=== PATIENT | female | born 1930 | race Caucasian/White ===

== ENCOUNTER → 2018-12-11 | Outpatient (CLI) | payer MEDICARE, OTHER ==
--- NOTE | 2018-12-11 09:37 | RAD ---
EXAM: Right knee, 3 views. HISTORY: Pain. COMPARISON: None. FINDINGS: 3 views the right knee are obtained. There is mild vertebral marginal spurring. There is a small joint effusion. There is no fracture, dislocation or subluxation. IMPRESSION: Mild tricompartmental intrathoracic right knee with a small joint effusion. Electronically signed by: Ирина Moreno MD (12/11/2018 9:34 AM) [id number]
== END | disposition home or self-care (01) ==
LOC: PMG 08:49
PROVIDERS: ATTEND Physician Assistant Medical
DX: M25.461 Effusion, right knee (principal); M76.891 Other specified enthesopathies of right lower limb, excluding foot; M17.11 Unilateral primary osteoarthritis, right knee
CPT/HCPCS: 73562

== ENCOUNTER → 2019-01-04 | Outpatient (CLI) | payer MEDICARE, OTHER ==
--- NOTE | 2019-01-04 15:06 | RAD ---
Right lower extremity venous doppler ultrasound Indication: Right leg pain and edema. Technique: Color Doppler, grayscale, and spectral waveform analysis is used to evaluate the right femoral and popliteal veins. Findings: No evidence of deep venous thrombosis. Normal response to augmentation, normal compressibility and normal phasicity is demonstrated. Visualized calf veins are patent. Fluid collection in the popliteal fossa measuring 17 x 13 x 13 mm likely Brandon's cyst. Impression: Negative for deep venous thrombosis Electronically signed by: Timothy Castillo MD (01/04/2019 3:03 PM) [id number]
== END | disposition home or self-care (01) ==
LOC: US 14:06
PROVIDERS: ATTEND Physician Assistant Medical
DX: M79.604 Pain in right leg (principal); R29.898 Other symptoms and signs involving the musculoskeletal system
CPT/HCPCS: 93971

== ENCOUNTER 2020-02-04 09:19 | Inpatient (IN) | payer MEDICARE ==
[~2020-02-04] VITALS: Ht 160 cm; Wt 75.1 kg
[2020-02-04] MEDS ORDERED: 0.9 % SODIUM CHLORIDE 10 ML DISP.SYRIN. IV PRN (09:45)
[2020-02-04] MEDS: NORMAL SALINE IV SCH ×6 (10:24→15:15)
--- NOTE | 2020-02-04 10:33 | EKG ---
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
--- NOTE | 2020-02-04 10:43 | PHYS DOC ---
Adult General Chief Complaint Chief Complaint: FEVER HPI HPI Patient is a 89 year old female who presents with complaint of chills and fever. The patient states that her symptoms started today. After awakening's morning, she noted that she started to suddenly feel very shaky all over. She states that this subsided after several minutes. She came to the emergency department to be evaluated for the symptoms. She was noted to have a fever of 101 F upon entering the building. Her temperature here in the emergency department measured orally is 99.1 F currently. She does state that she took 2 regular strength ibuprofen prior to coming to the emergency department. She denies ch est pain, shortness of breath, abdominal pain, vomiting, or diarrhea. No known exposure to any individuals confirmed or suspected to have COVID-19. Does note slight fatigue. Does have history of arthritis in the right knee. She notes mild swelling to her knee and pain but has not noted any redness or swelling throughout her leg. Review of Systems Review of Systems Constitutional: Chills, fever [] Eyes: Denies change in visual acuity, redness, or eye pain [] HENT: Denies nasal congestion or sore throat [] Respiratory: Denies cough or shortness of breath [] Cardiovascular: Denies chest pain or edema [] GI: Denies abdominal pain, nausea, vomiting, bloody stools or diarrhea [] : Denies dysuria or hematuria [] Musculoskeletal: Denies back pain or joint pain [] Integument: Denies rash or skin lesions [] Neurologic: Denies headache, focal weakness or sensory changes [] All other systems were reviewed and found to be within normal limits, except as documented in this note. Current Medications Current Medications Current Medications Medications (Trade) Dose Ordered Sig/Joanie Start Time Stop Time Status Last Admin Dose Admin Sodium Chloride 1,560 ml @ 1,560 mls/hr Q1H 02/04/20 10:15 02/04/20 10:24 1,560 MLS/HR Sodium Chloride (Normal Saline Flush) 10 ml QSHIFT PRN 02/04/20 09:45 Allergies Allergies Allergies Coded Allergies Type Severity Reaction Last Updated Verified No Known Drug Allergies 02/04/20 No Physical Exam Physical Exam Constitutional: Alert, febrile, no acute distress. [] HENT: Normocephalic, atraumatic, bilateral external ears normal, oropharynx moist, no oral exudates, nose normal. [] Eyes: PERRLA, EOMI, conjunctiva normal, no discharge. [] Neck: Normal range of motion, no tenderness, supple, no stridor. [] Cardiovascular: Tachycardia, regular rhythm, no murmur [] Lungs & Thorax: Bilateral breath sounds clear to auscultation [] Abdomen: Bowel sounds normal, soft, no tenderness, no masses, no pulsatile masses. [] Skin: Warm, dry, no erythema, no rash. [] Back: No tenderness, no CVA tenderness. [] Extremities: Right knee with mild joint effusion, no erythema or warmth noted, no cyanosis, no clubbing, ROM intact. [] Neurologic: Alert and oriented X 3, normal motor function, normal sensory function, no focal deficits noted. [] Current Patient Data Vital Signs Vital Signs Date Time Temp Pulse Resp B/P (MAP) Pulse Ox O2 Delivery O2 Flow Rate FiO2 02/04/20 11:29 94 17 109/48 (68) 96 02/04/20 10:59 105 20 141/49 (79) 93 02/04/20 10:29 103 25 157/73 (101) 94 02/04/20 09:59 115 28 162/75 (104) 92 02/04/20 09:20 99.1 125 18 144/77 (99) 94 Room Air Lab Results Laboratory Tests Test 02/04/20 10:20 02/04/20 10:55 White Blood Count 18.4 x10^3/uL Red Blood Count 4.61 x10^6/uL Hemoglobin 14.1 g/dL Hematocrit 42.9 % Mean Corpuscular Volume 93 fL Mean Corpuscular Hemoglobin 31 pg Mean Corpuscular Hemoglobin Concent 33 g/dL Red Cell Distribution Width 14.4 % Platelet Count 186 x10^3/uL Neutrophils (%) (Auto) 94 % Lymphocytes (%) (Auto) 1 % Monocytes (%) (Auto) 4 % Eosinophils (%) (Auto) 0 % Basophils (%) (Auto) 0 % Neutrophils # (Auto) 17.4 x10^3uL Lymphocytes # (Auto) 0.3 x10^3/uL Monocytes # (Auto) 0.8 x10^3/uL Eosinophils # (Auto) 0.0 x10^3/uL Basophils # (Auto) 0.0 x10^3/uL Platelet Estimate Pending Sodium Level 139 mmol/L Potassium Level 3.9 mmol/L Chloride Level 104 mmol/L Carbon Dioxide Level 24 mmol/L Anion Gap 11 Blood Urea Nitrogen 19 mg/dL Creatinine 0.9 mg/dL Estimated GFR (Cockcroft-Gault) 59.1 BUN/Creatinine Ratio 21 Glucose Level 150 mg/dL Lactic Acid Level 2.7 mmol/L Calcium Level 10.2 mg/dL Total Bilirubin 0.4 mg/dL Aspartate Amino Transf (AST/SGOT) 18 U/L Alanine Aminotransferase (ALT/SGPT) 21 U/L Alkaline Phosphatase 83 U/L Total Protein 7.2 g/dL Albumin 3.4 g/dL Albumin/Globulin Ratio 0.9 Urine Collection Type Unknown Urine Color Yellow Urine Clarity Hazy Urine pH 6.0 Urine Specific [place] 1.025 Urine Protein Neg Urine Glucose (UA) 100 mg/dL Urine Ketones (Stick) Neg mg/dL Urine Blood Neg Urine Nitrite Neg Urine Bilirubin Neg Urine Urobilinogen Dipstick 0.2 mg/dL Urine Leukocyte Esterase Neg Urine RBC Occ /HPF Urine WBC Occ /HPF Urine Squamous Epithelial Cells Many /LPF Urine Bacteria Few /HPF Current Medications Medications (Trade) Dose Ordered Sig/Joanie Route PRN Reason Start Time Stop Time Status Last Admin Dose Admin Sodium Chloride (Normal Saline Flush) 10 ml QSHIFT PRN IV AFTER MEDS AND BLOOD DRAWS 02/04/20 09:45 Sodium Chloride 1,560 ml @ 1,560 mls/hr Q1H IV 02/04/20 10:15 02/04/20 10:24 Ceftriaxone Sodium 1 gm/ Sodium Chloride 50 ml @ 100 mls/hr 1X ONCE IV 02/04/20 12:00 02/04/20 12:29 UNV EKG EKG Interpreted by me: Heart rate 114, sinus tachycardia, normal intervals, no acute ST/T wave abnormalities present [] Radiology/Procedures Radiology/Procedures [address] [address] IMAGING REPORT Signed PATIENT: FLASH BARNEY ACCOUNT: [id number] : 1930 LOCATION: ER AGE: 89 SEX: F EXAM STATUS: REG ER ORD. PHYSICIAN: CHAR RAJPUT MD REASON: fever, tachycardia PROCEDURE: PORTABLE CHEST 1V PORTABLE CHEST 1V History: Reason: fever, tachycardia / Spl. Instructions: / History: Comparison: None. Findings: Linear right basilar opacity. No pleural effusion. No pneumothorax. Bilateral glenohumeral DJD with superior decentering of the humeral heads in relation to the glenoid, may indicate chronic rotator cuff tears. Impression: 1. Linear right basilar opacity, may represent atelectasis or scarring. Electronically signed by: Luis F Cintron DO (02/04/2020 10:48 AM) [id number] DICTATED AND SIGNED BY: LUIS F CINTRON DO DATE: 02/04/20 1048 CC: CHAR RAJPUT MD; JOSH BAE ~ [] Course & Med Decision Making Course & Med Decision Making Pertinent Labs and Imaging studies reviewed. (See chart for details) Patient noted to be tachycardic and was febrile as reported at the front door of the building, thus meeting SIRS criteria. The patient was started on IV fluids at 30 mL/kg bolus based off of ideal body weight. Lactic acid level was found to be 2.7 and white blood cell count was over 18,000. The source of the patient's infection is not clear after initial work-up. Given age and high risk for severe infection, the patient will be admitted to the hospital and started on empiric Rocephin therapy. I spoke with Dr. Vidales who agreed to accept patient to the hospital for further care. Dragon Disclaimer Dragon Disclaimer This electronic medical record was generated, in whole or in part, using a voice recognition dictation system. Departure Departure: Impression: Primary Impression: SIRS (systemic inflammatory response syndrome) Additional Impression: Elevated lactic acid level Disposition: ADMITTED INPATIENT Admitting Physician: Azael Vidales Condition: STABLE Referrals: JOSH BAE (PCP) Justification of Admission: Justification of Admission: Justification of Admission Dx: Yes Sepsis: Isolation Indicated Problem Qualifiers CHAR RAJPUT MD Feb 04, 2020 10:43
[2020-02-04 10:44] LABS: BASO % 0 % (0-3); EOS % 0 % (0-3); HEMATOCRIT 42.9 % (36.0-47.0); HEMOGLOBIN 14.1 g/dL (12.0-15.5); LYMPH # 0.3 x10^3/uL (1.0-4.8); LYMPH % 1 % (24-48); MEAN CORPUSCULAR HEMOGLOBIN 31 pg (25-35); MEAN CORPUSCULAR HGB CONC 33 g/dL (31-37); MEAN CORPUSCULAR VOLUME 93 fL (79-100); MONO # 0.8 x10^3/uL (0.0-1.1); MONO % 4 % (0-9); NEUT # 17.4 x10^3uL (1.8-7.7); NEUT % 94 % (31-73); PLATELET COUNT 186 x10^3/uL (140-400); RED BLOOD COUNT 4.61 x10^6/uL (3.50-5.40); RED CELL DISTRIBUTION WIDTH 14.4 % (11.5-14.5); WHITE BLOOD COUNT 18.4 x10^3/uL (4.0-11.0)
--- NOTE | 2020-02-04 10:51 | RAD ---
PORTABLE CHEST 1V History: Reason: fever, tachycardia / Spl. Instructions: / History: Comparison: None. Findings: Linear right basilar opacity. No pleural effusion. No pneumothorax. Bilateral glenohumeral DJD with superior decentering of the humeral heads in relation to the glenoid, may indicate chronic rotator cuff tears. Impression: 1. Linear right basilar opacity, may represent atelectasis or scarring. Electronically signed by: Luis F Cintron DO (02/04/2020 10:48 AM) [id number]
[2020-02-04 10:55] LABS: CALCIUM 10.2 mg/dL (8.5-10.1); CREATININE 0.9 mg/dL (0.6-1.0); GFR 59.1; POTASSIUM 3.9 mmol/L (3.5-5.1)
[2020-02-04 11:01] LABS: ALBUMIN 3.4 g/dL (3.4-5.0); ALBUMIN/GLOBULIN RATIO 0.9 (1.0-1.7); TOTAL BILIRUBIN 0.4 mg/dL (0.2-1.0); TOTAL PROTEIN 7.2 g/dL (6.4-8.2)
[2020-02-04 11:32] LABS: BACTERIA,URINE FEW /HPF (0-FEW); BILIRUBIN,URINE NEG (NEG); CLARITY,URINE HAZY; COLOR,URINE YELLOW; GLUCOSE,URINE 100 mg/dL (NEG); NITRITE,URINE NEG (NEG); RBC,URINE OCC /HPF (0-2); SQUAMOUS EPITHELIAL CELL,UR MANY /LPF; UROBILINOGEN,URINE 0.2 mg/dL (0.2 mg/dL); WBC,URINE OCC /HPF (0-4)
[2020-02-04] MEDS ORDERED: IV NORMAL SALINE 50ML 50 ML ONE (11:55)
[2020-02-04] MEDS ORDERED: cefTRIAXone SODIUM 1 GM VIAL ONE (11:55)
--- NOTE | 2020-02-04 13:35 | HP ---
ADMIT DATE: 02/04/2020 ATTENDING PHYSICIAN: Dr. Bell. CHIEF COMPLAINT: Fevers and chills. HISTORY OF PRESENT ILLNESS: The patient is a very alert, sharp 89-year-old female who has been fairly healthy. She presented to the ED today with new onset of fevers, chills and rigors. Temperature was measured at 101.0 degrees Fahrenheit upon entering the building. She took a couple of regular straight ibuprofen prior to coming here. She denied any chest pain, shortness of breath, cough, congestion, dysuria, nausea, vomiting or diarrhea. She denies any exposure any individuals confirmed or suspected to have COVID-19. This is very alert, sweet lady who still has her own home. She lives independently, but at nights, her daughter comes by and picks her up and spends the night with her. She lives also in town. She does not drive much anymore. She gets around. She has not been exposed to any type of grocery stores. When she goes out shopping, her daughter goes and she stays in the car. The chest x-ray in the ED showed linear atelectasis in the left base. Her white count is slightly elevated. She denied any other symptoms. She does note slight fatigue. There is a history of arthritis in the right knee. She uses a cane. She fulfills criteria for systemic inflammatory response syndrome. Urine and blood cultures as well as a COVID-19 swab have been ordered. These are pending at this time. She will be on empiric antibiotics and maintenance fluids. PAST MEDICAL HISTORY: Significant for essential hypertension. She has degenerative arthritis of the knees. She walks with a cane. SOCIAL HISTORY: She is a nonsmoker, nondrinker. ALLERGIES: She has no known drug allergies. CURRENT MEDICINES: Very simple. She takes small dose of lisinopril and a cholesterol agent. I am in the process of tracking the dosages. FAMILY HISTORY: Very interesting. Her mother of heart disease. Father of complications of a stroke. She had a son who has since . He had thyroid cancer. The son never and lives with her until he a few years back. She has 2 other daughters that are healthy. One daughter lives in town, picks her up and drives her and spends the night at her house, then she drives back to her own place. REVIEW OF SYSTEMS: Significant for the degenerative arthritis. No recent travel exposure. No nausea, vomiting or diarrhea. All other systems were reviewed and determined to be negative. PHYSICAL EXAMINATION: GENERAL: When I saw her, this is a pleasant elderly female who is in no acute distress. INITIAL VITAL SIGNS: Showed a blood pressure 141/49, pulse was 105 and regular, temperature 99.1 degrees Fahrenheit. Room air saturation 94%. HEENT: Head is without trauma. The pupils are reactive. The sclerae are nonicteric. The oropharynx is clear. NECK: Supple. Venous pressure was not distended. LUNGS: Otherwise clear. There are no wheezing, rales or rhonchi. CARDIOVASCULAR: Showed regular heart tones. No gallops, no murmurs. Peripheral pulses are palpable and full. ABDOMEN: Soft, obese, protuberant. No organomegaly. Bowel sounds were hypoactive. EXTREMITIES: Showed no cyanosis. She had degenerative changes of both knees. Range of motion limited. SKIN: Warm and dry. NEUROLOGIC: No focal deficits. Speech is fluent. There are no language issues. PERTINENT LABORATORY STUDIES: The hemoglobin is 14.1 g/dL with white count of 18,400. Urinalysis is fairly unremarkable. Chemistry panel stable. BUN and creatinine and electrolytes within normal range. Creatinine 0.9 mg percent. Nonfasting blood sugar 150. Liver panel unremarkable. One lactic acid level was 2.7. Chest x-ray shows a linear opacity in the right base. This is most likely atelectasis and/or scarring, no decompensation. ASSESSMENT: 1. An 89-year-old female with systemic inflammatory response syndrome. 2. Rule out sepsis. 3. Degenerative arthritis. 4. Hypertension, currently normotensive. PLAN: 1. Admit to the inpatient unit. 2. Cultures of blood, urine and COVID-19 swab have been ordered in the ED. 3. Empiric Rocephin. 4. Gentle IV hydration. 5. Diet as tolerated. 6. Further treatment pending culture results. SUSIE BELL MD DR: ISAAK/fred JOB#: [id number] / [id number] JOSH Murphy
[2020-02-04 13:52] VITALS: BP 151/53
[2020-02-04 14:18] LABS: % BANDS 20 % (0-9); % LYMPHS 1 % (24-48); % MONOS 4 % (0-10); % SEGS 75 % (35-66); PLT ESTIMATE ADEQUATE (ADEQUATE)
[2020-02-04] MEDS: ACETAMINOPHEN 325 MG TABLET PO PRN (16:58)
[2020-02-04 19:43] VITALS: BP 105/38
[2020-02-04 20:01] VITALS: BP 102/57
[2020-02-04] MEDS ORDERED: LISI-334 PO (20:04)
[2020-02-04] MEDS ORDERED: METO-239 PO (20:04)
[2020-02-04 23:36] VITALS: BP 131/55
--- NOTE | 2020-02-05 03:01 | NUR ---
The patient, FLASH BARNEY, 89 y/o, F admitted by SUSIE BELL MD, was given written information regarding hospital policies, unit procedures and contact persons. Valuables were checked and left in room with pt .
[2020-02-05] MEDS: ACETAMINOPHEN 325 MG TABLET PO PRN ×3 (03:06→21:06)
[2020-02-05 06:28] VITALS: BP 112/49
[2020-02-05 12:36] VITALS: BP 106/49
[2020-02-05 13:41] LABS: BASO % 0 % (0-3); EOS # 0.1 x10^3/uL (0.0-0.7); EOS % 1 % (0-3); HEMATOCRIT 39.9 % (36.0-47.0); HEMOGLOBIN 13.1 g/dL (12.0-15.5); LYMPH # 0.9 x10^3/uL (1.0-4.8); LYMPH % 7 % (24-48); MEAN CORPUSCULAR HEMOGLOBIN 31 pg (25-35); MEAN CORPUSCULAR HGB CONC 33 g/dL (31-37); MEAN CORPUSCULAR VOLUME 94 fL (79-100); MONO # 0.6 x10^3/uL (0.0-1.1); MONO % 5 % (0-9); NEUT # 11.7 x10^3uL (1.8-7.7); NEUT % 87 % (31-73); PLATELET COUNT 157 x10^3/uL (140-400); RED BLOOD COUNT 4.26 x10^6/uL (3.50-5.40); RED CELL DISTRIBUTION WIDTH 14.7 % (11.5-14.5); WHITE BLOOD COUNT 13.4 x10^3/uL (4.0-11.0)
[2020-02-05 13:58] LABS: ALBUMIN 2.6 g/dL (3.4-5.0); ALBUMIN/GLOBULIN RATIO 0.7 (1.0-1.7); CALCIUM 9.6 mg/dL (8.5-10.1); GFR 52.3; POTASSIUM 4.2 mmol/L (3.5-5.1); TOTAL BILIRUBIN 0.3 mg/dL (0.2-1.0); TOTAL PROTEIN 6.6 g/dL (6.4-8.2)
[2020-02-05 17:27] VITALS: BP 106/52
[2020-02-05 19:05] VITALS: BP 135/60
--- NOTE | 2020-02-05 21:36 | PN ---
DATE: 02/05/2020 SUBJECTIVE: The patient is resting, almost flat in bed, in no apparent distress. She is awake, alert. On questioning her, denied any complaint, in particular denied any chest pain or shortness of breath. Denied any cough, phlegm or hemoptysis. Denied any chills, rigors or fever. She has had no dysuria, frequency or hematuria. She is generally feeling well. She is feeling much improved compared to yesterday. PHYSICAL EXAMINATION: GENERAL: When I examined her, she looked somewhat pale, but no jaundice, cyanosis or thyromegaly. No jugular venous distention. No limb edema. VITAL SIGNS: Her heart rate was 67, blood pressure was 106/49, temperature 98.5, respiratory rate 20, and oxygen saturation was 93%. HEAD, EYES, EARS, NOSE AND THROAT: Normocephalic, atraumatic. NECK: Supple. HEART: Showed normal first and second heart sounds. No gallop or murmur. CHEST: Clear to auscultation. No crepitation or rhonchi. ABDOMEN: Distended, soft, nontender. NEUROLOGIC: She was awake, alert, responding appropriately. All cranial nerves are intact. She moves extremities without difficulty. She ambulates with a cane. She does have markedly swollen right lower extremity, although there is no obvious erythema, apparently she has sprained her right lower extremity before; however, she denied any history of deep vein thrombosis. Her intake over the last 24 hours and output are incompletely recorded. LABORATORY DATA: Her lab work this morning showed a white cell count is trending down to 13,400, hemoglobin 13, hematocrit 39, MCV 94 and platelet count of 157,000. Her serum sodium was 138, potassium 4.2, chloride 104, bicarbonate 27, anion gap of 7, BUN 19, creatinine 1, estimated GFR was 52 mL per minute. Her glucose 143, calcium was 9.6. Total bilirubin, AST, ALT, alkaline phosphatase were normal. Total protein was 6.6, albumin was 2.6. Her beta natriuretic peptide was 2139. Her urinalysis was essentially unremarkable. Her chest x-ray showed linear right basilar opacities, no pleural effusion, pneumothorax, bilateral glenohumeral degenerative joint disease with severe decentering of the humeral head in relation to glenoid may indicate chronic rotator cuff tear. ASSESSMENT: 1. In summary, this is an 89-year-old female patient who was admitted with fever and leukocytosis without any obvious source of infection. She was started empirically on IV antibiotic and she is clinically responding. Her white cell count is down. She is afebrile. 2. Degenerative joint disease. 3. Hypertension. PLAN: To continue with IV antibiotic. Continue with IV fluid. She does have her urine and blood sent for culture and sensitivity, the result of which is still pending at the time of this dictation. She was swabbed for COVID-19, the result of which is still pending at the time of this dictation. I will arrange for her to have a venous Doppler ultrasound of her right lower extremity given that it is definitely more swollen __. VICKIE GREENWOOD MD DR: ARACELIS/fred JOB#: [id number] / [id number]
[2020-02-05 22:11] VITALS: BP 120/52
[2020-02-06 06:06] VITALS: BP 139/55
[2020-02-06 06:47] LABS: HEMATOCRIT 35.1 % (36.0-47.0); HEMOGLOBIN 11.6 g/dL (12.0-15.5); RED BLOOD COUNT 3.72 x10^6/uL (3.50-5.40); RED CELL DISTRIBUTION WIDTH 14.3 % (11.5-14.5); WHITE BLOOD COUNT 8.9 x10^3/uL (4.0-11.0)
[2020-02-06 07:02] LABS: ALBUMIN 2.3 g/dL (3.4-5.0); ALBUMIN/GLOBULIN RATIO 0.6 (1.0-1.7); CALCIUM 9.4 mg/dL (8.5-10.1); CREATININE 0.8 mg/dL (0.6-1.0); GFR 67.7; POTASSIUM 3.7 mmol/L (3.5-5.1); TOTAL BILIRUBIN 0.3 mg/dL (0.2-1.0); TOTAL PROTEIN 6.1 g/dL (6.4-8.2)
[2020-02-06] MEDS: METOPROLOL SUCC 24HR ER 25 MG TAB.ER.24H. PO SCH (09:49)
[2020-02-06 10:10] VITALS: BP 147/59
[2020-02-06 13:13] VITALS: BP 124/58
--- NOTE | 2020-02-06 13:17 | NUR ---
BLOOD CULTURE RESULT CAME POSITIVE 4/4 BOTTLES WITH GRAM NEG COCCI BACCILI. PT IS ALREADY ON ANTIBIOTIC TX POCEPHIN IV
[2020-02-06] MEDS ORDERED: ENOXAPARIN 40 MG/0.4 ML SYRINGE. SQ SCH (18:00)
--- NOTE | 2020-02-06 19:18 | PN ---
DATE: 02/06/2020 SUBJECTIVE: The patient is resting, slightly propped up in bed, in no apparent respiratory distress. She is awake and alert. On questioning her, denied any complaint. The nursing staff did not voice any concerns that she has any eventful night. She did have a low-grade fever last night up to 100 degrees Fahrenheit. PHYSICAL EXAMINATION: GENERAL: When I examined her today, she looked well and was clearly in no apparent respiratory distress, slightly pale, no jaundice, cyanosis or thyromegaly. No jugular venous distention. No limb edema. VITAL SIGNS: Her heart rate was 78, blood pressure was 124/58, temperature was 99, respiratory rate 20, and oxygen saturation was 96%. HEAD, EYES, EARS, NOSE AND THROAT: Normocephalic, atraumatic. NECK: Supple. HEART: Showed normal first and second heart sounds. No gallop or murmur. CHEST: Clear to auscultation. No crepitation or rhonchi. ABDOMEN: Distended, soft, nontender. No guarding or rigidity. No organomegaly. All hernial orifice intact. Bowel sounds normal. NEUROLOGIC: She is awake, alert, responding appropriately. All cranial nerves intact. She moves extremities without difficulty. Continued to have her right lower extremity more swollen than the left, although we are unable to do her venous Doppler ultrasound because her COVID-19 test still pending. Her intake was ___. No output was recorded. LABORATORY DATA: Her lab work this morning showed a white cell count of 8900, hemoglobin 11.6, hematocrit 35, MCV 94 and platelet 156,000. Her chemistry showed a serum sodium 139, potassium 3.7, chloride 107, BUN 25, creatinine 7, BUN was 17, creatinine 0.8, estimated GFR was 67 mL per minute. Her glucose was 91, calcium was 9.4. Total bilirubin, AST, ALT, alkaline phosphatase were normal. Total protein is 6.1 and albumin 2.3. Her procalcitonin was 1.82. ASSESSMENT: 1. This is an 89-year-old female patient who was admitted with fever and leukocytosis. Her blood culture has grown gram positive coccobacilli in all 4 bottles. She seems to be responding to IV Rocephin. She is afebrile, hemodynamically stable. Her white cell count is definitely down from 18,400 down to 8900. Her COVID-19 test still pending at the time of this dictation. 2. Degenerative joint disease. 3. Hypertension. PLAN: To continue with IV fluid, continue with IV antibiotic and I did order venous Doppler ultrasound of her right lower extremity and it was not done because her COVID-19 still pending. I will add Lovenox 40 mg subcutaneous once a day for DVT prophylaxis and once her test becomes available, we will arrange for her to have venous Doppler ultrasound. VICKIE GREENWOOD MD DR: ARACELIS/fred JOB#: [id number] / [id number]
[2020-02-06 20:29] VITALS: BP 154/70
[2020-02-06] MEDS: ACETAMINOPHEN 325 MG TABLET PO PRN (20:51)
[2020-02-06 22:21] VITALS: BP 149/73
[2020-02-07 05:05] VITALS: BP 155/52
[2020-02-07 06:24] LABS: HEMATOCRIT 35.1 % (36.0-47.0); HEMOGLOBIN 11.5 g/dL (12.0-15.5); RED BLOOD COUNT 3.75 x10^6/uL (3.50-5.40); RED CELL DISTRIBUTION WIDTH 14.6 % (11.5-14.5); WHITE BLOOD COUNT 5.8 x10^3/uL (4.0-11.0)
[2020-02-07 06:40] LABS: ALBUMIN 2.2 g/dL (3.4-5.0); ALBUMIN/GLOBULIN RATIO 0.6 (1.0-1.7); CALCIUM 9.4 mg/dL (8.5-10.1); CREATININE 0.8 mg/dL (0.6-1.0); GFR 67.7; POTASSIUM 4.1 mmol/L (3.5-5.1); TOTAL BILIRUBIN 0.3 mg/dL (0.2-1.0); TOTAL PROTEIN 6.1 g/dL (6.4-8.2)
--- NOTE | 2020-02-07 06:40 | NUR ---
Pt is COVID negative, moved out of isolation into room 117 with all belongings. Pt with 3+ non-pitting edema to RLE, reddened and somewhat painful especially around knee. Pt given PRN tylenol at HS per request. Pt slept well through night and awoke this morning in good spirits. Pt reports decreased pain to RLE, able to walk to bathroom with cane and standby assist. Pt scheduled for RLE doppler this AM. Lovenox for VTE.
--- NOTE | 2020-02-07 08:33 | RAD ---
Examination: Right Lower Extremity Venous Doppler Ultrasound History: Right lower extremity swelling Comparison: 01/04/2019 Procedure: Tolbert scale, color flow 2D and spectal waveform analysis images are obtained with and without compression in the area of the common femoral vein, superficial femoral vein - femoral vein junction, main femoral vein (superficial femoral vein) and popliteal vein. Veins of the proximal calf are also imaged. Findings: There is normal duplex flow, color flow and compressibility of all visualized vein segments. No evidence of deep venous thrombus is present. Impression: No evidence of DVT in the right lower extremity venous system. Electronically signed by: Steve Reyna MD (02/07/2020 8:30 AM) [id number]
[2020-02-07] MEDS: METOPROLOL SUCC 24HR ER 25 MG TAB.ER.24H. PO SCH (09:04)
[2020-02-07] MEDS ORDERED: LISINOPRIL 20 MG TABLET PO SCH (09:30)
[2020-02-07 12:35] VITALS: BP 124/71
[2020-02-07 15:28] VITALS: BP 148/76
--- NOTE | 2020-02-07 16:51 | DS ---
DATE OF DISCHARGE: 02/07/2020 HOSPITAL COURSE: The patient is an 89-year-old female patient who was admitted with fever and leukocytosis. We did send blood and urine for culture and sensitivity. Also, she was swabbed for COVID-19 that turned out to be negative. Her blood culture has grown gram-negative coccobacilli and that was finally identified as Pasteurella multocida. The patient was started initially on IV Rocephin and she did actually very well. She has been afebrile. Her white cell count came steadily down from high of 18,400 down to 5800. She was afebrile, hemodynamically stable, and therefore, a decision was made to discharge her home. On questioning her, she stated that she does have a cat that lives outside, but she has been scratching that before, although she has no open wound. Her right lower extremity was swollen. However, we did venous Doppler ultrasound, it showed no evidence of deep vein thrombosis. PHYSICAL EXAMINATION: GENERAL: When I saw her this afternoon, she was sitting on the edge of the bed comfortably in no apparent distress, slightly pale, no jaundice, cyanosis, or thyromegaly. No jugular venous distention. No limb edema. VITAL SIGNS: Her heart rate was 84, blood pressure was 148/76, temperature was 98.3, respiratory rate was 18, and oxygen saturation was 94%. HEAD, EYES, EARS, NOSE, AND THROAT: Showed normocephalic, atraumatic. NECK: Supple. HEART: Showed normal first and second heart sounds. No gallop or murmur. CHEST: Clear to auscultation. No crepitation or rhonchi. ABDOMEN: Distended, soft, nontender. NEUROLOGIC: She is awake, alert, responding appropriately. All cranial nerves are intact. She moves extremities without difficulty. Her intake and output were incompletely recorded. LABORATORY DATA: Her white cell count this morning was 5800, hemoglobin 11.5, hematocrit 35, MCV 94, and platelet count of 180,000. Her serum sodium was 139, potassium 4.1, chloride 106, bicarbonate 28, anion gap of 5, BUN 16, creatinine 0.8, estimated GFR was 68 mL per minute. Her glucose was 88, calcium was 9.4. Total bilirubin, AST, ALT, alkaline phosphatase were normal. Total protein was 6.1, albumin was 2.2. DISCHARGE MEDICATIONS: She was discharged home to continue on lisinopril 20 mg once a day, metoprolol succinate 25 mg once, a day as well as Augmentin 500/125 one tablet twice a day for 6 more days. 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 DISCHARGE FOLLOWUP INSTRUCTIONS: The patient was advised to follow with her primary care physician. VICKIE GREENWOOD MD DR: ARACELIS/fred JOB#: [id number] / [id number]
--- NOTE | 2020-02-07 17:47 | NUR ---
PATIENT IS DISCHARGED HOME, VS ARE STABLE, DISCHARGE INSTRUCTIONS AND PRESCRIBED MEDICATIONS ARE REVIEWED, PT VERBALIZED UNDERSTANDING. PT LEFT ROOM 117 VIA W/C ACCOMPANIED BY THIS RN. PATIENT IS TAKEN HOME BY FAMILY MEMBER VIA PERSONAL VEHICLE.
[2020-02-07] MEDS ORDERED: LACTOBACILLUS RHAMNOSUS GG 1 CAPSULE. PO SCH (21:00)
[2020-02-07] MEDS ORDERED: AMOXICILLIN/K CLAV 500/125MG TABLET. PO SCH (21:00)
== END 2020-02-07 17:45 | disposition home or self-care (01) | DRG 868 ==
LOC: ER 09:19 → 1 SOUTH 11:53
PROVIDERS: ADMIT Hospitalist; ATTEND Internal Medicine
DX: A28.0 Pasteurellosis (principal); E87.2 Acidosis; R65.10 Systemic inflammatory response syndrome (SIRS) of non-infectious origin without acute organ dysfunction; I10 Essential (primary) hypertension; M17.0 Bilateral primary osteoarthritis of knee; Z80.8 Family history of malignant neoplasm of other organs or systems; Z82.3 Family history of stroke; Z82.49 Family history of ischemic heart disease and other diseases of the circulatory system; Z20.828 Contact with and (suspected) exposure to other viral communicable diseases
CPT/HCPCS: 36415; 71045; 80053; 81001; 83605; 83880; 84145; 85007; 85025; 85027; 87040; 87205; 93005; 93971; 96365; 99285; J0696; J1650; J7030; U0003-CS

== ENCOUNTER → 2021-02-12 | Outpatient (CLI) | payer MEDICARE ==
[~2021-02-12] MED LIST: LISI20TA18 PO; METO-239 PO
--- NOTE | 2021-02-12 17:04 | RAD ---
Left hip 2 views. AP view was taken of the pelvis to include the left hip. A lateral view was taken of the left hip. Th ere is spurring on the femoral head on the left consistent with arthritis. There is no acute hip frac ture. There is no pubic ramus fracture. Pelvis is intact without acute osseous abnormality. 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 IMPRESSION: 1. Arthritis left hip. 2. No acute left hip fracture. Electronically signed by: Dao Moss MD (02/12/2021 5:01 PM) [facility]
== END ==
LOC: PMG 13:13
PROVIDERS: ATTEND Physician Assistant
DX: S76.012A Strain of muscle, fascia and tendon of left hip, initial encounter (principal); M16.12 Unilateral primary osteoarthritis, left hip; X58.XXXA Exposure to other specified factors, initial encounter; Y93.89 Activity, other specified; Y92.89 Other specified places as the place of occurrence of the external cause; Y99.8 Other external cause status
CPT/HCPCS: 73501